=== PATIENT | female | born 1990 | race Caucasian/White ===

== ENCOUNTER 2016-07-24 19:34 | Emergency (ER) | payer MEDICAID ==
[~2016-07-24] VITALS: Ht 165.1 cm; Wt 113.6 kg
[2016-07-24 22:23] VITALS: BP 124/81
== END 2016-07-24 22:24 | disposition home or self-care (01) ==
LOC: EMS 19:37
DX: G56.02 Carpal tunnel syndrome, left upper limb (principal); S63.92XA Sprain of unspecified part of left wrist and hand, initial encounter; E66.9 Obesity, unspecified; Z68.41 Body mass index [BMI] 40.0-44.9, adult; X58.XXXA Exposure to other specified factors, initial encounter; Y93.89 Activity, other specified; Y92.89 Other specified places as the place of occurrence of the external cause; Y99.8 Other external cause status
CPT/HCPCS: 81025; 99284